=== PATIENT | male | born 1970 | race Caucasian/White ===

== ENCOUNTER → 2017-07-04 08:49 | Outpatient (POV) | payer MEDICAID, SELFPAY ==
[2017-07-04 09:00] VITALS: BP 172/113; PULSE 98; RESP 20; O2SAT 97; BMI 23.3
--- NOTE | 2017-07-04 09:10 | PC.NURSE ---
patient reports he took blood pressure medication just prior to arrival in clinic
--- NOTE | 2017-07-04 09:21 | HMH.PMCON ---
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 Patient has been discharged from previous pain clinics due to inappropriate pill counts. Patient stated he was uninterested in any interventional measures including injections or stimulator. Patient is very concerned about where he will be receiving his medication from I encouraged him to call his primary care physician. We will follow-up with this patient if he decides he wants pursue a neurostimulator. This note was dictated using voice recognition software and may contain errors or omissions HPI - Data of Consult Consult date: 07/04/17 Requesting Physician: Shyanne So APRN Primary Care Provider: Christ Castro Family Provider: Christ Castro - Consult Narrative Reason for consult: Right intercostal pain History of present illness: Mr. Torres is a 47 year old male who presents today to discuss his right intercostal pain. 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 Patient has been in a pain clinic in [place] for quite some time preceding oxycodone, tramadol, gabapentin. Patient was discharged from the pain clinic due to failed pill count. Patient states that he had injections in the past with no relief. Patient states they did offer him a stimulator however he is uninterested in that at this time. Patient rates his pain a 7 out of 10 today. Patient states that it is constant. Patient states that the stabbing and twisting pain. Patient states his medication decreases his pain 60-70%. Patient is quite concerned because he states he will be out of medicine soon and he was sent here for medication management. I discussed with the patient that we are interventional in nature and we never give medication on the first visit nor do we typically prescribe it. States he still smoking daily. CC: Shyanne So APRN [facility] History I have reviewed the patient's past medical history: Yes Medical History: Reports:: Hypertension Denies:: Diabetes Mellitus Type 1, Diabetes Mellitus Type 2 Other Surgeries: Yes: Cancer Surgery - *Social History Educational Level: Attended High School Smoking Status: Current every day smoker # Packs/Day (cigarettes): 1 Alcohol Intake: current Alcohol Intake Frequency:: other Occupational Status: disabled Housing: other - Psychiatric History Expresses thoughts of harming self/others: None Suicide Plan Description: No Plan *Family Hx:: Asthma Review of Systems - Review of Systems ROS General: no recent weight change, no fever, no sleep disturbances Respiratory: Cough, shortness of breath at times Cardiovascular/Peripheral Vascular: No chest pain, No palpitations, no edema, no shortness of breath. Gastrointestinal: no new onset incontinence, normal bowel movements reported Genitourinary: no new onset incontinence Musculoskeletal: Right intercostal pain Psychiatric: normal mood/ affect Neurological: [denies weakness in extremities], [denies balance issues] Meds Home Medications Medication Instructions Recorded Confirmed Type Albuterol Sulfate [Albuterol HFA 2 puffs INHALATION DIRECTED 07/04/17 07/04/17 History Inhaler] Buspirone HCl 7.5 mg PO DIRECTED 07/04/17 07/04/17 History Gabapentin [Neurontin 600mg 600 mg PO DIRECTED 07/04/17 07/04/17 History tablet] Metoprolol Tartrate 50 mg PO DAILY 07/04/17 07/04/17 History Omeprazole [Omeprazole 20mg 20 mg PO BID 07/04/17 07/04/17 History Capsule] Ondansetron HCl [Zofran 4mg Tab] 4 mg PO BID 07/04/17 07/04/17 History Oxycodone HCl [Oxycodone (IR) 10mg 10 mg PO DIRECTED 07/04/17 07/04/17 History Tab] Tramadol HCl [Ultram Take Home 50 m
--- NOTE | 2017-07-04 09:24 | P.CONS_ITS ---
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 Patient has been discharged from previous pain clinics due to inappropriate pill counts. Patient stated he was uninterested in any interventional measures including injections or stimulator. Patient is very concerned about where he will be receiving his medication from I encouraged him to call his primary care physician. We will follow-up with this patient if he decides he wants pursue a neurostimulator. This note was dictated using voice recognition software and may contain errors or omissions HPI - Data of Consult Consult date: 07/04/17 Requesting Physician: Shyanne So APRN Primary Care Provider: Christ Castro Family Provider: Christ Castro - Consult Narrative Reason for consult: Right intercostal pain History of present illness: Mr. Torres is a 47 year old male who presents today to discuss his right intercostal pain. 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 Patient has been in a pain clinic in [place] for quite some time preceding oxycodone, tramadol, gabapentin. Patient was discharged from the pain clinic due to failed pill count. Patient states that he had injections in the past with no relief. Patient states they did offer him a stimulator however he is uninterested in that at this time. Patient rates his pain a 7 out of 10 today. Patient states that it is constant. Patient states that the stabbing and twisting pain. Patient states his medication decreases his pain 60 -70%. Patient is quite concerned because he states he will be out of medicine soon and he was sent here for medication management. I discussed with the patient that we are interventional in nature and we never give medication on the first visit nor do we typically prescribe it. States he still smoking daily. CC: Shyanne So APRN [facility] History I have reviewed the patient's past medical history: Yes Medical History: Reports:: Hypertension Denies:: Diabetes Mellitus Type 1, Diabetes Mellitus Type 2 Other Surgeries: Yes: Cancer Surgery - *Social History Educational Level: Attended High School Smoking Status: Current every day smoker # Packs/Day (cigarettes): 1 Alcohol Intake: current Alcohol Intake Frequency:: other Occupational Status: disabled Housing: other - Psychiatric History Expresses thoughts of harming self/others: None Suicide Plan Description: No Plan *Family Hx:: Asthma Review of Systems - Review of Systems ROS General: no recent weight change, no fever, no sleep disturbances Respiratory: Cough, shortness of breath at times Cardiovascular/Peripheral Vascular: No chest pain, No palpitations, no edema, no shortness of breath. Gastrointestinal: no new onset incontinence, normal bowel movements reported Genitourinary: no new onset incontinence Musculoskeletal: Right intercostal pain Psychiatric: normal mood/ affect Neurological: [denies weakness in extremities], [denies balance issues] Meds Home Medications Medication Instructions Recorded Confirmed Type Albuterol Sulfate [Albuterol HFA 2 puffs INHALATION DIRECTED 07/04/17 History Inhaler] Buspirone HCl 7.5 mg PO DIRECTED 07/04/17
== END ==
PROVIDERS: Family Provider Family Medicine; PCP Family Medicine; Visit Provider Clinical Nurse Specialist Family Health
DX: G58.0 Intercostal neuropathy (principal)
CPT/HCPCS: 99202

== ENCOUNTER → 2018-04-28 17:09 | Outpatient (CLI) | payer MEDICAID, SELFPAY ==
[2018-04-28 18:45] LABS: Amphetamine/Metha Screen,Urine Negative ng/mL (<1000); Barbiturates Screen,Urine Negative ng/mL (<200); Benzodiazepines Screen,Urine Negative ng/mL (<200); Cannabinoid Screen,Urine Positive ng/mL (<50); Cocaine Screen,Urine Negative ng/mL (<300); Methadone Screen,Urine Negative ng/mL (<300); Opiate Screen,Urine Negative ng/mL (<300); Phencyclidine Screen,Urine Negative ng/mL (<25)
== END ==
LOC: LAB 17:10 → LAB.DROPOF 05-01 07:37
PROVIDERS: PCP Emergency Medicine; Visit Provider Emergency Medicine
DX: Z79.899 Other long term (current) drug therapy (principal)
CPT/HCPCS: 80305

== ENCOUNTER → 2018-06-20 12:32 | Outpatient (CLI) | payer MEDICAID, SELFPAY ==
[2018-06-21 16:12] LABS: Amphetamine/Metha Screen,Urine Negative ng/mL (<1000); Barbiturates Screen,Urine Negative ng/mL (<200); Benzodiazepines Screen,Urine Negative ng/mL (<200); Cannabinoid Screen,Urine Positive ng/mL (<50); Cocaine Screen,Urine Negative ng/mL (<300); Methadone Screen,Urine Negative ng/mL (<300); Opiate Screen,Urine Positive ng/mL (<300); Phencyclidine Screen,Urine Negative ng/mL (<25)
== END ==
LOC: LAB 06-21 14:16 → LAB.DROPOF 06-22 10:28
PROVIDERS: Visit Provider Emergency Medicine
DX: Z79.899 Other long term (current) drug therapy (principal)
CPT/HCPCS: 80305

== ENCOUNTER → 2018-08-22 18:07 | Outpatient (CLI) | payer MEDICAID, SELFPAY ==
[2018-08-22 19:45] LABS: Amphetamine/Metha Screen,Urine Negative ng/mL (<1000); Barbiturates Screen,Urine Negative ng/mL (<200); Benzodiazepines Screen,Urine Negative ng/mL (<200); Cannabinoid Screen,Urine Positive ng/mL (<50); Cocaine Screen,Urine Negative ng/mL (<300); Methadone Screen,Urine Negative ng/mL (<300); Opiate Screen,Urine Negative ng/mL (<300); Phencyclidine Screen,Urine Negative ng/mL (<25)
== END ==
PROVIDERS: Visit Provider Emergency Medicine
DX: Z79.899 Other long term (current) drug therapy (principal)
CPT/HCPCS: 80305

== ENCOUNTER → 2018-10-20 17:45 | Outpatient (CLI) | payer MEDICAID, SELFPAY ==
[2018-10-20 18:38] LABS: Amphetamine/Metha Screen,Urine Negative ng/mL (<1000); Barbiturates Screen,Urine Negative ng/mL (<200); Benzodiazepines Screen,Urine Negative ng/mL (<200); Cannabinoid Screen,Urine Positive ng/mL (<50); Cocaine Screen,Urine Negative ng/mL (<300); Methadone Screen,Urine Negative ng/mL (<300); Opiate Screen,Urine Positive ng/mL (<300); Phencyclidine Screen,Urine Negative ng/mL (<25)
== END ==
PROVIDERS: Visit Provider Emergency Medicine
DX: Z79.899 Other long term (current) drug therapy (principal)
CPT/HCPCS: 80305

== ENCOUNTER → 2019-02-20 12:39 | Outpatient (CLI) | payer MEDICAID, SELFPAY ==
--- NOTE | 2019-02-20 12:49 | XR_ITS ---
PROCEDURE: XR CHEST 2V CLINICAL HISTORY: COPD Shortness of breath COMPARISON: CXR2V XR chest 2V from 05/14/2018 CXR1VP XR chest portable from 05/14/2018 FINDINGS: Mild cardiomegaly without failure. There is increased density along the right heart border consistent with prominent pericardial fat pad similar to the old exam. Suture line is present in the right suprahilar region. No lobar consolidation or collapse. There is a nodular opacity overlying the inferior aspect of T9 vertebral body on the lateral view. This is nonspecific and may be due to an overlying osteophyte or sclerotic area of the vertebra. Pulmonary nodule could have a similar appearance and follow-up is suggested. This measures approximately 8 mm. The remaining lungs are clear. There is mild hyperinflation with attenuation of the peripheral pulmonary vessels consistent with COPD. No acute bony abnormalities. IMPRESSION: COPD with nodular opacity overlying the T9 vertebral body nonspecific and could be due to summation density from osteophyte, sclerosis in the vertebral body or an overlying nodule. Consider follow-up to confirm stability Dictated by: Kye Veras MD 02/20/2019 13:07 Electronically signed by Kye Veras MD in [place] 02/20/2019 13:07
[2019-02-20 18:03] LABS: Amphetamine/Metha Screen,Urine Negative ng/mL (<1000); Barbiturates Screen,Urine Negative ng/mL (<200); Benzodiazepines Screen,Urine Negative ng/mL (<200); Cannabinoid Screen,Urine Positive ng/mL (<50); Cocaine Screen,Urine Negative ng/mL (<300); Methadone Screen,Urine Negative ng/mL (<300); Opiate Screen,Urine Positive ng/mL (<300); Phencyclidine Screen,Urine Negative ng/mL (<25)
== END ==
PROVIDERS: PCP Emergency Medicine; Visit Provider Emergency Medicine
DX: J44.9 Chronic obstructive pulmonary disease, unspecified (principal); M54.9 Dorsalgia, unspecified
CPT/HCPCS: 71046; 80305

== ENCOUNTER → 2019-02-20 16:42 | Outpatient (CLI) | payer MEDICAID, SELFPAY | PROVIDERS: Visit Provider Emergency Medicine | DX: M54.9 Dorsalgia, unspecified (principal) | CPT/HCPCS: 80305 ==

== ENCOUNTER → 2019-03-21 13:36 | Outpatient (CLI) | payer MEDICAID, SELFPAY ==
[2019-03-21 19:42] LABS: Amphetamine/Metha Screen,Urine Negative ng/mL (<1000); Barbiturates Screen,Urine Negative ng/mL (<200); Benzodiazepines Screen,Urine Negative ng/mL (<200); Cannabinoid Screen,Urine Positive ng/mL (<50); Cocaine Screen,Urine Negative ng/mL (<300); Methadone Screen,Urine Negative ng/mL (<300); Opiate Screen,Urine Positive ng/mL (<300); Phencyclidine Screen,Urine Negative ng/mL (<25)
== END ==
PROVIDERS: Visit Provider Emergency Medicine
DX: Z79.899 Other long term (current) drug therapy (principal)
CPT/HCPCS: 80305

== ENCOUNTER → 2019-05-14 13:33 | Outpatient (CLI) | payer MEDICAID, SELFPAY | PROVIDERS: PCP Emergency Medicine; Visit Provider Emergency Medicine | DX: J44.9 Chronic obstructive pulmonary disease, unspecified (principal) | CPT/HCPCS: 94060; 94618; 94726; 94729 ==

== ENCOUNTER → 2019-05-18 13:46 | Outpatient (CLI) | payer MEDICAID, SELFPAY ==
[2019-05-18 16:21] LABS: Amphetamine/Metha Screen,Urine Negative ng/mL (<1000); Barbiturates Screen,Urine Negative ng/mL (<200); Benzodiazepines Screen,Urine Negative ng/mL (<200); Cannabinoid Screen,Urine Positive ng/mL (<50); Cocaine Screen,Urine Negative ng/mL (<300); Methadone Screen,Urine Negative ng/mL (<300); Opiate Screen,Urine Positive ng/mL (<300); Phencyclidine Screen,Urine Negative ng/mL (<25)
== END ==
PROVIDERS: Visit Provider Emergency Medicine
DX: Z79.899 Other long term (current) drug therapy (principal)
CPT/HCPCS: 80305

== ENCOUNTER → 2019-09-11 14:01 | Outpatient (CLI) | payer MEDICAID, SELFPAY ==
[2019-09-11 14:04] LABS: MANUAL DIFFERENTIAL MANUAL DIFFERENTIAL (MANUAL DIFF)
--- NOTE | 2019-09-11 14:19 | XR_ITS ---
PROCEDURE: XR CHEST 2V CLINICAL HISTORY: copd Previous surgery for lung cancer right upper lobe, smoking history COMPARISON: CXR2V XR chest 2V from 05/14/2018 CXR1VP XR chest portable from 05/14/2018 XR CHEST 2V from 02/20/2019 FINDINGS: The cardiomediastinal silhouette and pulmonary vascularity are within normal limits. There is partial silhouetting of the right heart border probably due to some mild degree of scarring in the right middle lobe. The lungs are clear without infiltrates, suspicious nodules, or pleural effusions. There is very little if any post surgical scarring right suprahilar region and right upper lobe. The questionable nodular density overlying the T 9 vertebral body on the previous chest film is not definitely seen. No acute bony abnormalities. IMPRESSION: No acute findings. Dictated by: Dr. Kostas Norwood MD 09/11/2019 14:[address] Kostas Norwood MD in [place] 09/11/2019 14:48
[2019-09-11 14:23] LABS: Basophils # 0.1 K/mm3 (0-0.2); Eosinophils # 0.2 K/mm3 (0.0-0.4); Eosinophils % 2.3 % (0.1-12.0); Hematocrit 50.4 % (42.0-52.0); Hemoglobin 17.3 g/dL (14.1-18.0); Lymphocytes % 29.5 % (10-50); Mean Corpuscular HGB Conc 34.3 g/dL (31.8-35.4); Mean Corpuscular Hemoglobin 35.8 pg (27.0-31.2); Mean Corpuscular Volume 104.4 fl (80-94); Mean Platelet Volume 9.5 fl (7.4-10.4); Monocytes # 0.3 K/mm3 (0.1-1.0); Neutrophils # 4.1 K/mm3 (1.8-7.8); Neutrophils % 62.2 % (37.0-80.0); Platelet Count 176 K/mm3 (142-424); Red Blood Count 4.82 M/mm3 (4.60-6.20); Red Cell Distribution Width 13.3 % (11.5-17.5); White Blood Count 6.6 K/mm3 (4.8-10.8)
[2019-09-11 14:52] LABS: Erythrocyte Sedimentation Rate 10 mm/hr (0-15)
[2019-09-11 15:42] LABS: Chloride 102 mmol/L (98-107); Potassium 4.6 mmoL/L (3.5-5.1); Sodium 138 mmol/L (136-145)
[2019-09-11 15:44] LABS: Blood Urea Nitrogen 5 mg/dl (9-20); Estimated Glomerular Filt Rate 103 ml/min (>60); GFR (African American) 125 ML/MIN (>60)
[2019-09-11 15:45] LABS: Alanine Aminotransferase 45 U/L (12-78); Albumin Level 4.3 g/dl (3.5-5.0); Albumin/Globulin Ratio 1.3 (1.1-1.8); Alkaline Phosphatase 70 U/L (38-126); Anion Gap 11.6 mEq/L (5-15); Aspartate Amino Transferase 43 U/L (17-59); Bilirubin,Total 0.8 mg/dl (0.2-1.3); Carbon Dioxide 29 mmol/L (22.0-30.0); Globulin 3.2 g/dL (1.3-3.2); Glucose 65 mg/dl (74-100); Total Protein,Serum 7.5 g/dl (6.3-8.2)
[2019-09-11 16:38] LABS: Lymphocytes % 20 % (10-50); Monocytes % 16 % (2-9); Neutrophils % 63 % (42-76); Platelet Estimate Normal; Total Cells Counted 100
[2019-09-11 16:39] LABS: Microcytosis 1+
[2019-09-13 06:58] LABS: Covid-19 Nasal PCR Sendout Lex NOT DETECTED
== END ==
PROVIDERS: Visit Provider Otolaryngology
DX: J44.9 Chronic obstructive pulmonary disease, unspecified (principal); Z85.118 Personal history of other malignant neoplasm of bronchus and lung; Z01.84 Encounter for antibody response examination
CPT/HCPCS: 36415; 71046; 80053; 85007; 85014; 85018; 85048; 85049; 85651; U0004

== ENCOUNTER 2019-09-13 08:44 | Day surgery (SDC) | payer MEDICAID, SELFPAY ==
[2019-09-12 10:50] VITALS: BMI 24.1
[2019-09-13] VITALS (11 sets, daily range): BP systolic 106–136; BP diastolic 54–93; PULSE 67–93; RESP 12–18; TEMP 36.1–36.7; O2SAT 90–99
--- NOTE | 2019-09-13 09:35 | ECG_ITS ---
APPROVED REPORT Exam: Resting ECG HR:67 bpm ECG Measurements Heart Rate 67 AXES MO 156 P 59 QRSd 82 QRS 79 QT 416 T 38 QTc 439 <Conclusion> Normal sinus rhythm with sinus arrhythmia Normal ECG Electronically signed by : Minor Alexander, 09/13/2019 16:56:13
--- NOTE | 2019-09-13 09:59 | P.PN_ITS ---
[facility] Anesthesia Checklist - Patient Identification Patient Identification: Arm Band - Structural Data Admitted From: Home Planned Operative Procedure/s: microdebridement bilateral ears Consent for Planned Operative Procedure(s) Verified: Yes Verified Documents: Surgical Consent, History and Physical - NPO Status Verified Time NPO: 00:00 - Additional verifications Anesthesia Reactions: No Hx Blood Transfusions: No Blood Transfusion Reaction: No - Airway Assessment C-Spine Mobility Assessed: Yes (mp2) TMJ Mobility Assessed: Yes Dentition: Good Dentition - Neurological Assessment Level of Consciousness: Awake, Alert - Anesthesia Plan Anesthesia Risk discussed: Yes Anesthesia Plan: Verified ASA Class: III Anesthesia Type: General [facility] History I have reviewed the patient's past medical history: Yes Medical History: Reports:: Anxiety, Cancer (lung), Chronic Obstructive Pulmonary Disease (COPD), Gastroesophageal Reflux Disease(GERD), Hypertension Denies:: Diabetes Mellitus Type 1, Diabetes Mellitus Type 2, Internal Pacemaker, MRSA, Seizures *Have you ever received a pneumonia vaccine?: No *Have you received a flu vaccine this season?: No Other Medical History: Denies: Blood Transfusion Reaction Anesthesia experience/problems:: nac Other Surgeries: Yes: Cancer Surgery, Other. No: Pacemaker Amputation: No Fractures: Yes (nose) - *Social History Smoking Status: Current every day smoker Tobacco Type: cigarettes # Packs/Day (cigarettes): 1 Alcohol Intake: never Alcohol Intake Frequency:: a few times a month Substance Use Type: denies use *Occupational Status:: disabled Housing: house *Travel in the last 8 weeks: None Family Hx:: Asthma, Cancer
--- NOTE | 2019-09-13 11:23 | P.PN_ITS ---
[facility] Anesthesia Record Part I Intake, IV Amount: 1,000 Estimated blood loss (mL): 0 Urine output (mL): 0 Blood Pressure: 122/75 SaO2: 93 Pulse Rate: 79 Respiratory Rate: 12 Temperature: 97 F Patient is:: Awake, Stable Stable to PACU at:: 11:15
--- NOTE | 2019-09-13 15:19 | P.OP_ITS ---
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 Probable foreign body right ear Post-op Diagnosis:: same Procedure performed:: 1. Microdebridement of left mastoid 2. Removal of foreign body right ear Surgeon:: Shubham Mackay MD PRODUCT DEVELOPER:: Josué Birch Anesthesia: GETA Estimated blood loss (mL): 0 Operative findings:: same Operative note:: With the patient under general anesthesia using the operating microscope for all the procedure the left ear was prepped and draped. The left ear canal was filled with debris highly suggestive of a cholesteatoma. Using microdement techniques all of the debris was cleared and some of it was submitted for histo pathology. There was a epitympanic mastoid pocket which was cleared of what appeared to be a cholesteatoma in the ear was thoroughly irrigated after cultures were taken for C&S and anaerobes. Ciprodex drops were applied to the left ear. Patient was repositioned and a black hard foreign body was removed from right ear and submitted. The ear was then thoroughly irrigated and Ciprodex drops were applied. The patient was sent to recovery in good general condition. Condition: stable Disposition: PACU Complications:: none
--- NOTE | 2019-09-14 13:24 | HMH.ANESII ---
[facility] Anesthesia Record Part II Discharge Time: 11:45 Destination: [facility] PACU nurse assessment reviewed?: Yes Patient Condition:: Good Anesthesia Complications:: None Swallowing reflex intact?: Yes Cyanosis?: No Blood Pressure: 108/79 Pulse Rate: 73 Temperature: 97.0 F Mental Status: Alert & Oriented Pain level:: 6 Nausea and/or vomitting:: None Intake, IV Amount: 600
[2019-09-14 13:25] VITALS: BP 108/79; PULSE 73; TEMP 36.1
== END 2019-09-13 12:30 | disposition home or self-care (01) ==
LOC: OR 08:47
PROVIDERS: PCP Emergency Medicine; Visit Provider Otolaryngology
PROC: (CPT 69990; principal; 2019-09-13 10:30)
DX: H60.42 Cholesteatoma of left external ear (principal); H70.12 Chronic mastoiditis, left ear; Z79.51 Long term (current) use of inhaled steroids; Z79.899 Other long term (current) drug therapy; J44.9 Chronic obstructive pulmonary disease, unspecified; I10 Essential (primary) hypertension; Z72.0 Tobacco use; Z85.118 Personal history of other malignant neoplasm of bronchus and lung; Z90.2 Acquired absence of lung [part of]; H92.02 Otalgia, left ear; H92.12 Otorrhea, left ear
CPT/HCPCS: 69990; 69799; 87070; 87075; 87077; 87186; 87205; 93005; 96374; 96375; J2405

== ENCOUNTER → 2020-05-26 13:57 | Outpatient (CLI) | payer MEDICAID, SELFPAY ==
[2020-05-26 16:39] LABS: Amphetamine/Metha Screen,Urine Negative ng/ml (<1000)
[2020-05-26 16:46] LABS: Barbiturates Screen,Urine Negative ng/ml (<200)
[2020-05-26 16:47] LABS: Benzodiazepines Screen,Urine Negative ng/ml (<200)
[2020-05-26 16:48] LABS: Cannabinoid Screen,Urine Positive ng/ml (<50); Cocaine Screen,Urine Negative ng/ml (<300)
[2020-05-26 16:49] LABS: Methadone Screen,Urine Negative ng/ml (<300); Opiate Screen,Urine Positive ng/ml (<300)
[2020-05-26 16:50] LABS: Phencyclidine Screen,Urine Negative ng/ml (<25)
== END ==
PROVIDERS: Visit Provider Emergency Medicine
DX: Z79.899 Other long term (current) drug therapy (principal)
CPT/HCPCS: 80305

== ENCOUNTER → 2020-09-22 14:05 | Outpatient (CLI) | payer MEDICAID, SELFPAY ==
[2020-09-22 17:58] LABS: Amphetamine/Metha Screen,Urine Negative ng/ml (<1000); Barbiturates Screen,Urine Negative ng/ml (<200)
[2020-09-22 18:00] LABS: Benzodiazepines Screen,Urine Negative ng/ml (<200)
[2020-09-22 18:01] LABS: Cannabinoid Screen,Urine Positive ng/ml (<50); Cocaine Screen,Urine Negative ng/ml (<300)
[2020-09-22 18:02] LABS: Methadone Screen,Urine Negative ng/ml (<300)
[2020-09-22 18:03] LABS: Opiate Screen,Urine Positive ng/ml (<300); Phencyclidine Screen,Urine Negative ng/ml (<25)
== END ==
PROVIDERS: Visit Provider Emergency Medicine
DX: G62.9 Polyneuropathy, unspecified (principal); Z79.899 Other long term (current) drug therapy
CPT/HCPCS: 80305

== ENCOUNTER → 2020-11-19 13:45 | Outpatient (CLI) | payer MEDICAID, SELFPAY ==
[2020-11-19 15:04] LABS: Benzodiazepines Screen,Urine Negative ng/ml (<200); Cannabinoid Screen,Urine Positive ng/ml (<50)
[2020-11-19 15:09] LABS: Phencyclidine Screen,Urine Negative ng/ml (<25)
[2020-11-19 15:45] LABS: Amphetamine/Metha Screen,Urine Negative ng/ml (<1000); Barbiturates Screen,Urine Negative ng/ml (<200)
[2020-11-19 15:46] LABS: Cocaine Screen,Urine Negative ng/ml (<300)
[2020-11-19 15:47] LABS: Methadone Screen,Urine Negative ng/ml (<300); Opiate Screen,Urine Positive ng/ml (<300)
== END ==
PROVIDERS: Visit Provider Emergency Medicine
DX: G89.29 Other chronic pain (principal)
CPT/HCPCS: 80305

== ENCOUNTER → 2021-01-16 12:50 | Outpatient (CLI) | payer MEDICAID, SELFPAY ==
[2021-01-16 14:10] LABS: Amphetamine/Metha Screen,Urine Negative ng/ml (<1000)
[2021-01-16 14:11] LABS: Barbiturates Screen,Urine Negative ng/ml (<200); Benzodiazepines Screen,Urine Negative ng/ml (<200)
[2021-01-16 14:12] LABS: Cannabinoid Screen,Urine Positive ng/ml (<50)
[2021-01-16 14:14] LABS: Cocaine Screen,Urine Negative ng/ml (<300)
[2021-01-16 14:15] LABS: Methadone Screen,Urine Negative ng/ml (<300); Opiate Screen,Urine Positive ng/ml (<300)
[2021-01-16 14:16] LABS: Phencyclidine Screen,Urine Negative ng/ml (<25)
== END ==
PROVIDERS: Visit Provider Emergency Medicine
DX: Z79.899 Other long term (current) drug therapy (principal)
CPT/HCPCS: 80305

== ENCOUNTER → 2021-02-17 13:16 | Outpatient (CLI) | payer MEDICAID, SELFPAY ==
[2021-02-17 14:46] LABS: Amphetamine/Metha Screen,Urine Negative ng/ml (<1000); Barbiturates Screen,Urine Negative ng/ml (<200)
[2021-02-17 14:47] LABS: Benzodiazepines Screen,Urine Negative ng/ml (<200); Cannabinoid Screen,Urine Positive ng/ml (<50)
[2021-02-17 14:48] LABS: Cocaine Screen,Urine Negative ng/ml (<300)
[2021-02-17 14:49] LABS: Methadone Screen,Urine Negative ng/ml (<300); Opiate Screen,Urine Positive ng/ml (<300)
[2021-02-17 14:50] LABS: Phencyclidine Screen,Urine Negative ng/ml (<25)
== END ==
PROVIDERS: Visit Provider Nurse Practitioner Family
DX: M54.9 Dorsalgia, unspecified (principal)
CPT/HCPCS: 80305

== ENCOUNTER → 2021-06-04 13:51 | Outpatient (CLI) | payer MEDICAID, SELFPAY ==
--- NOTE | 2021-06-04 13:51 | CT_ITS ---
FINAL REPORT CLINICAL HISTORY: h/o lung cancer in 2014 FINDINGS: CT CHEST WITH AND WITHOUT CONTRAST TECHNIQUE: Axial images through the chest were performed by computed tomography before and after the administration of IV contrast. This study was performed with techniques to keep radiation doses as low as reasonably achievable, (ALARA). Individualized dose reduction techniques using automated exposure control or adjustment of mA and/or kV according to the patient's size were employed. FINDINGS: There is no axillary adenopathy. There is no hilar or mediastinal adenopathy. The heart size is normal. There is no pericardial or pleural effusion. There are postoperative changes of the right thorax. There is a calcified granuloma in the right lung. There is mild scarring in the right lung. No suspicious infiltrate or nodule identified. There is a chronic right posterior 6th rib fracture. Limited images of the upper abdomen show bilateral adrenal gland enlargement which has a nonspecific appearance, favor adenomas. This could be followed up with an adrenal mass protocol CT or PET CT. IMPRESSION: 1. No suspicious pulmonary mass or nodule. 2. Bilateral adrenal gland enlargement is nonspecific, but adenomas are favored. This could be followed up with an adrenal mass protocol CT or PET-CT for further evaluation. Reviewed, Interpreted and Dictated by Jaret Elizabeth III, MD Transcribed by NATE Cabezas Authenticated by Jaret Elizabeth III, MD on 06/04/2021 03:36:19 PM [facility]
== END ==
PROVIDERS: PCP Emergency Medicine; Visit Provider Emergency Medicine
DX: C80.1 Malignant (primary) neoplasm, unspecified (principal); G89.28 Other chronic postprocedural pain; R07.89 Other chest pain; Z85.118 Personal history of other malignant neoplasm of bronchus and lung
CPT/HCPCS: 71270; Q9967

== ENCOUNTER → 2021-06-17 15:22 | Outpatient (CLI) | payer MEDICAID, SELFPAY ==
[2021-06-17 18:40] LABS: Amphetamine/Metha Screen,Urine Negative ng/ml (<1000)
[2021-06-17 18:41] LABS: Barbiturates Screen,Urine Negative ng/ml (<200)
[2021-06-17 18:42] LABS: Cannabinoid Screen,Urine Positive ng/ml (<50)
[2021-06-17 18:43] LABS: Cocaine Screen,Urine Negative ng/ml (<300)
[2021-06-17 18:44] LABS: Methadone Screen,Urine Negative ng/ml (<300); Opiate Screen,Urine Positive ng/ml (<300)
[2021-06-17 18:45] LABS: Phencyclidine Screen,Urine Negative ng/ml (<25)
[2021-06-17 18:48] LABS: Benzodiazepines Screen,Urine Negative ng/ml (<200)
== END ==
PROVIDERS: Visit Provider Emergency Medicine
DX: Z79.899 Other long term (current) drug therapy (principal)
CPT/HCPCS: 80305

== ENCOUNTER → 2021-08-10 23:30 | Outpatient (CLI) | payer MEDICAID, SELFPAY ==
[2021-08-10 18:10] LABS: Barbiturates Screen,Urine Negative ng/ml (<200)
[2021-08-10 18:11] LABS: Amphetamine/Metha Screen,Urine Negative ng/ml (<1000); Benzodiazepines Screen,Urine Negative ng/ml (<200)
[2021-08-10 18:12] LABS: Methadone Screen,Urine Negative ng/ml (<300)
[2021-08-10 18:13] LABS: Cannabinoid Screen,Urine Positive ng/ml (<50); Cocaine Screen,Urine Negative ng/ml (<300)
[2021-08-10 18:14] LABS: Opiate Screen,Urine Positive ng/ml (<300)
[2021-08-10 18:15] LABS: Phencyclidine Screen,Urine Negative ng/ml (<25)
== END ==
PROVIDERS: PCP Emergency Medicine; Visit Provider Emergency Medicine
DX: Z79.899 Other long term (current) drug therapy (principal)
CPT/HCPCS: 80305